=== PATIENT | female | born 1945 | race Caucasian/White ===

== ENCOUNTER → 2018-01-27 | Outpatient (CLI) | payer MEDICARE ==
[~2018-01-27] MED LIST: ASPI-555 PO; ATOR40TA71 PO; BETA1TAB18 PO; BLACK COHOSH PO; HYDR25TA PO; METOPROLOL PO; NAPR-1192 PO; OMEG-53 PO; PIOGLITAZONE PO; POTA99TA21 PO; THIA50TA PO
== END | disposition home or self-care (01) ==
LOC: RAH 10:10
PROVIDERS: ATTEND Internal Medicine Cardiovascular Disease
DX: R06.00 Dyspnea, unspecified (principal); I10 Essential (primary) hypertension
CPT/HCPCS: 71046

== ENCOUNTER 2019-08-16 06:00 | Day surgery (SDC) | payer MEDICARE ==
[2019-08-09 11:00] LABS: BASOPHILS % (AUTO) 0.4 % (0.0-5.0); EOSINOPHILS % (AUTO) 4.9 % (0.0-8.0); HEMATOCRIT 38.7 % (36-48); LYMPHOCYTES % (AUTO) 19.5 % (21.0-51.0); MEAN CORPUSCULAR HEMOGLOBIN 30.6 pg (27.0-33.0); MEAN CORPUSCULAR HGB CONC 31.5 g/dL (32.0-36.0); MONOCYTES % (AUTO) 14.7 % (3.0-13.0); NEUTROPHILS % (AUTO) 60.2 % (40.0-77.0); PLATELET COUNT (AUTO) 120 K/uL (130-400); RED BLOOD CELL COUNT(AUTO) 3.99 MIL/uL (4.00-5.50); RED CELL DISTRIBUTION WIDTH 14.8 % (11.0-15.5); WHITE BLOOD COUNT (AUTO) 6.9 K/uL (4.8-10.8)
[2019-08-09 11:16] LABS: CREATININE 0.9 mg/dL (0.5-1.5); POTASSIUM 4.4 mmol/L (3.5-5.1)
[2019-08-15 11:22] VITALS: BP 128/74
[2019-08-16] VITALS (13 sets, daily range): BP systolic 109–136; BP diastolic 50–80
[~2019-08-16] VITALS: Ht 154.9 cm; Wt 86.3 kg
[~2019-08-16 06:00] MED LIST changes: -ASPI-555 PO; +ASPI-556 PO; -BETA1TAB18 PO; -BLACK COHOSH PO; +CEFAZOLIN SODIUM 1 GM VIAL IVP SCH; +GABA600T10 PO; +GLUC-145 PO; -HYDR25TA PO; +IMIP25TA5 PO; +LISI-617 PO; -NAPR-1192 PO; +NAPR1TAB28 PO; +NAPR220C15 PO; +PANT20TA18 PO; -POTA99TA21 PO; +POTASSIUM ER PO; -THIA50TA PO
[2019-08-16] MEDS ORDERED: SODIUM CHLORIDE 0.9% 1000ML 1,000 ML IV ONE (06:06)
--- NOTE | 2019-08-16 06:50 | NUR ---
preop pt arrived in no distress. pt dressed in gown and made comfortable in stretcher. pt here for rt carpal tunnel release. pt v/s in stable condition. will continue to monitor pt.
[2019-08-16] MEDS ORDERED: LIDOCAINE HCL-MPF 0.5% 50ML VIAL IJ ONE (06:57)
[2019-08-16] MEDS ORDERED: MIDAZOLAM HCL 1 MG/ML 2ML VIAL ONE (07:03)
[2019-08-16] MEDS ORDERED: FENTANYL CITRATE PF 50 MCG/1 ML 2ML VIAL ONE (07:04)
--- NOTE | 2019-08-16 08:30 | NUR ---
OR PT TAKEN TO OR VIA STRETCHER IN NO DISTRESS
[2019-11-28] MEDS ORDERED: FURO20TA4 PO (09:37)
[2019-11-28] MEDS ORDERED: POTA-9 PO (09:37)
[2019-11-28] MEDS ORDERED: ESTR0.5T4 PO (09:38)
== END 2019-08-16 10:50 | disposition home or self-care (01) ==
LOC: DAH 06:00
PROVIDERS: ATTEND Neurological Surgery
DX: G56.03 Carpal tunnel syndrome, bilateral upper limbs (principal); I10 Essential (primary) hypertension; E11.9 Type 2 diabetes mellitus without complications; F41.9 Anxiety disorder, unspecified; E66.9 Obesity, unspecified; E78.00 Pure hypercholesterolemia, unspecified; Z11.59 Encounter for screening for other viral diseases
CPT/HCPCS: 36415; 64721; 80048; 82948 ×2; 85025; 93005; A4215 ×2; A4221; A4222; A4223 ×2; A4663; A6260; J0690; J2250; J3010; J3490; J7030; U0003; 87635

== ENCOUNTER 2019-11-29 05:56 | Day surgery (SDC) | payer OTHER ==
[2019-11-24 13:38] LABS: BASOPHILS % (AUTO) 0.4 % (0.0-5.0); EOSINOPHILS % (AUTO) 3.8 % (0.0-8.0); HEMATOCRIT 40.7 % (36-48); LYMPHOCYTES % (AUTO) 26.3 % (21.0-51.0); MEAN CORPUSCULAR HEMOGLOBIN 31.2 pg (27.0-33.0); MEAN CORPUSCULAR HGB CONC 31.2 g/dL (32.0-36.0); MONOCYTES % (AUTO) 13.4 % (3.0-13.0); PLATELET COUNT (AUTO) 126 K/uL (130-400); RED BLOOD CELL COUNT(AUTO) 4.07 MIL/uL (4.00-5.50); RED CELL DISTRIBUTION WIDTH 15.2 % (11.0-15.5); WHITE BLOOD COUNT (AUTO) 7.3 K/uL (4.8-10.8)
[2019-11-24 13:47] LABS: POTASSIUM 4.8 mmol/L (3.5-5.1)
[2019-11-28 09:12] VITALS: BP 163/81
[2019-11-29] VITALS (17 sets, daily range): BP systolic 125–158; BP diastolic 46–88
[~2019-11-29] VITALS: Ht 157.5 cm; Wt 89.4 kg
[~2019-11-29 05:56] MED LIST changes: -CEFAZOLIN SODIUM 1 GM VIAL IVP SCH; +ESTR0.5T4 PO; +FURO20TA4 PO; -GLUC-145 PO; -IMIP25TA5 PO; -NAPR1TAB28 PO; -NAPR220C15 PO; -OMEG-53 PO; -PANT20TA18 PO; +POTA-9 PO; -POTASSIUM ER PO
[2019-11-29] MEDS ORDERED: CEFAZOLIN SODIUM 1 GM VIAL ONE ×2 (06:05→06:06)
[2019-11-29] MEDS ORDERED: SODIUM CHLORIDE 0.9% 1000ML 1,000 ML IV ONE (07:22)
[2019-11-29] MEDS ORDERED: PROPOFOL 10 MG/ML 20ML VIAL IV ONE (07:23)
[2019-11-29] MEDS ORDERED: DEXAMETHASONE SOD PHOSPHATE 10MG/ML 1ML VIAL ONE (07:23)
[2019-11-29] MEDS ORDERED: LIDOCAINE PF 2% 5ML ABBOJECT ONE (07:23)
[2019-11-29] MEDS ORDERED: ONDANSETRON HCL 4 MG/2 ML VIAL ONE (07:24)
[2019-11-29] MEDS ORDERED: MIDAZOLAM HCL 1 MG/ML 2ML VIAL ONE ×2 (07:24→07:46)
[2019-11-29] MEDS ORDERED: FENTANYL CITRATE PF 50 MCG/1 ML 2ML VIAL ONE (07:24)
[2019-11-29] MEDS ORDERED: KETAMINE HCL 100 MG/ML 5ML VIAL IJ ONE (07:25)
[2019-11-29] MEDS ORDERED: LIDOCAINE HCL MDV 0.5% 50ML VIAL IJ ONE (07:25)
[2019-11-29] MEDS ORDERED: CEFAZOLIN SODIUM 1 GM VIAL IVP ONE (08:00)
--- NOTE | 2019-11-29 09:20 | NUR ---
POST OP RECEIVED PT POST. PT IN NO DISTRESS. PT HAND ELEVATED AND WITH DRESSING CLEAN AND DRY. PT ORIENTED TO ROOM AND CALL LIGHT. WILL CONTINUE TO MONITOR PT
== END 2019-11-29 10:15 | disposition home or self-care (01) ==
LOC: DAH 05:56
PROVIDERS: ATTEND Neurological Surgery
DX: G56.02 Carpal tunnel syndrome, left upper limb (principal); Z79.899 Other long term (current) drug therapy; Z20.828 Contact with and (suspected) exposure to other viral communicable diseases
CPT/HCPCS: 36415; 64721; 80051; 82948 ×2; 85025; 93005; A4213; A4215 ×2; A4216; A4221 ×2; A4222 ×2; A4223 ×5; A4606 ×2; A4663 ×2; A6260; C9803; J0690 ×2; J1100; J2001; J2250 ×2; J2405; J3490 ×2; J7030; U0003; J2704; J3010

== ENCOUNTER → 2021-06-12 | Outpatient (CLI) | payer OTHER ==
[~2021-06-12] MED LIST changes: -LISI-617 PO; +LISI5TAB21 PO; +POTA-10 PO; -POTA-9 PO
== END | disposition home or self-care (01) ==
LOC: RAH 13:52
PROVIDERS: ATTEND Physical Medicine & Rehabilitation
DX: M47.22 Other spondylosis with radiculopathy, cervical region (principal); M48.02 Spinal stenosis, cervical region; M48.54XA Collapsed vertebra, not elsewhere classified, thoracic region, initial encounter for fracture; M47.817 Spondylosis without myelopathy or radiculopathy, lumbosacral region; M48.07 Spinal stenosis, lumbosacral region; M51.26 Other intervertebral disc displacement, lumbar region; M21.371 Foot drop, right foot; Z98.890 Other specified postprocedural states; Z88.6 Allergy status to analgesic agent; Z88.2 Allergy status to sulfonamides
CPT/HCPCS: 72141; 72148

== ENCOUNTER 2021-09-03 05:58 | Observation (INO) | payer OTHER ==
[2021-09-02 09:30] VITALS: BP 134/62
[2021-09-02 10:05] LABS: BASOPHILS % (AUTO) 0.2 % (0.0-5.0); HEMATOCRIT 43.3 % (36-48); MEAN CORPUSCULAR HEMOGLOBIN 30.4 pg (27.0-33.0); MEAN CORPUSCULAR HGB CONC 31.4 g/dL (32.0-36.0); MEAN CORPUSCULAR VOLUME 96.7 fL (79-99); MONOCYTES % (AUTO) 10.5 % (3.0-13.0); NEUTROPHILS % (AUTO) 60.1 % (40.0-77.0); PLATELET COUNT (AUTO) 144 K/uL (130-400); RED BLOOD CELL COUNT(AUTO) 4.48 MIL/uL (4.00-5.50); RED CELL DISTRIBUTION WIDTH 15.1 % (11.0-15.5); WHITE BLOOD COUNT (AUTO) 9.2 K/uL (4.8-10.8)
[2021-09-02 10:17] LABS: POTASSIUM 4.6 mmol/L (3.5-5.1)
[2021-09-03] VITALS (40 sets, daily range): BP systolic 128–171; BP diastolic 43–93
[~2021-09-03] VITALS: Ht 154.9 cm; Wt 86.8 kg
[~2021-09-03 05:58] MED LIST changes: -ESTR0.5T4 PO; +GABA300C PO; -GABA600T10 PO; +IMIP50TA6 PO; +LACTATED RINGERS 1000ML 0 ML IV ONE; +PANT20TA18 PO; +SERT-439 PO
[2021-09-03] MEDS ORDERED: CEFAZOLIN SODIUM 1 GM VIAL IVP SCH (06:00)
[2021-09-03] MEDS ORDERED: 0.9%NACL 1000ML 1,000 ML IV ONE (06:04)
[2021-09-03] MEDS ORDERED: NEOSTIGMINE 5MG/5ML SYR IV ONE (06:57)
[2021-09-03] MEDS ORDERED: PROPOFOL 10 MG/ML 20ML VIAL IV ONE (06:57)
[2021-09-03] MEDS ORDERED: DEXAMETHASONE SOD PHOSPHATE 10MG/ML 1ML VIAL ONE ×2 (06:57→08:06)
[2021-09-03] MEDS ORDERED: SUCCINYLCHOLINE CHLORIDE 20 MG/ML 10 ML VIAL ONE (06:57)
[2021-09-03] MEDS ORDERED: ONDANSETRON 4MG INJ ONE (06:57)
[2021-09-03] MEDS ORDERED: GLYCOPYRROLATE 1 MG/5 ML SYRINGE ONE (06:57)
[2021-09-03] MEDS ORDERED: MIDAZOLAM HCL 1 MG/ML 2ML VIAL ONE (06:57)
[2021-09-03] MEDS ORDERED: ROCURONIUM 10MG/1ML SYR 10 MG/ML ML ONE (06:58)
[2021-09-03] MEDS ORDERED: FENTANYL CITRATE PF 50 MCG/1 ML 2ML VIAL ONE ×2 (06:58→08:56)
[2021-09-03] MEDS ORDERED: BUPIVACAINE/EPI/PF 0.25% 10ML VIAL IJ SCH (07:30)
[2021-09-03] MEDS ORDERED: CEFAZOLIN SODIUM 1 GM VIAL ONE (07:51)
[2021-09-03] MEDS ORDERED: BUPIVACAINE/PF 0.25% 30ML VIAL IJ ONE (07:53)
[2021-09-03] MEDS ORDERED: BUPIVACAINE/EPI/PF 0.25% 10ML VIAL IJ ONE (08:16)
[2021-09-03] MEDS ORDERED: LIDOCAINE HCL-MPF 1% 5ML AMP IJ ONE (08:17)
[2021-09-03] MEDS ORDERED: PHENYLEPHRINE HCL 10 MG/ML 1ML VIAL IV ONE (09:03)
[2021-09-03] MEDS ORDERED: KETOROLAC 15MG/ML VIAL (15MG/ML) ONE (11:20)
[2021-09-03] MEDS ORDERED: IPRATROPIUM 0.5 MG/2.5 ML INH IH ONE (11:50)
[2021-09-03] MEDS ORDERED: FUROSEMIDE 20MG VIAL ONE (12:39)
[2021-09-03] MEDS ORDERED: MORPHINE 2 MG SYG IVP ONE (14:30)
[2021-09-03] MEDS ORDERED: FUROSEMIDE 20 MG TABLET PO PRN (15:30)
[2021-09-03] MEDS ORDERED: KETOROLAC 15MG/ML VIAL (15MG/ML) IV PRN (15:30)
[2021-09-03] MEDS ORDERED: MORPHINE 2 MG SYG IVP PRN (17:00)
[2021-09-03] MEDS: POTASSIUM CHLORIDE 10MEQ SR TAB PO SCH (19:46)
[2021-09-03] MEDS: METOPROLOL TARTRATE 50 MG TAB PO SCH (19:46)
[2021-09-03] MEDS: GABAPENTIN 300 MG CAPSULE PO SCH (19:48)
[2021-09-03] MEDS ORDERED: AMITRIPTYLINE 25 MG TABLET PO SCH (21:00)
[2021-09-03] MEDS ORDERED: SERTRALINE HCL 50 MG TABLET PO SCH (21:00)
[2021-09-04] VITALS: BP 145/65
[2021-09-04 04:00] VITALS: BP 147/70
[2021-09-04 05:00] LABS: ALBUMIN 2.7 g/dL (3.5-5.0); BILIRUBIN,TOTAL 0.6 mg/dL (0.2-1.0); CREATININE 0.8 mg/dL (0.5-1.5); MAGNESIUM 1.6 mg/dL (1.80-2.40); POTASSIUM 4.1 mmol/L (3.5-5.1); TOTAL PROTEIN, SERUM 6.2 g/dL (6.0-8.3)
[2021-09-04 05:30] LABS: BASOPHILS % (AUTO) 0.1 % (0.0-5.0); HEMATOCRIT 38.5 % (36-48); LYMPHOCYTES % (AUTO) 12.7 % (21.0-51.0); MEAN CORPUSCULAR HEMOGLOBIN 30.5 pg (27.0-33.0); MEAN CORPUSCULAR HGB CONC 32.2 g/dL (32.0-36.0); MEAN CORPUSCULAR VOLUME 94.6 fL (79-99); MONOCYTES % (AUTO) 4.5 % (3.0-13.0); NEUTROPHILS % (AUTO) 82.3 % (40.0-77.0); PLATELET COUNT (AUTO) 143 K/uL (130-400); RED BLOOD CELL COUNT(AUTO) 4.07 MIL/uL (4.00-5.50); RED CELL DISTRIBUTION WIDTH 14.9 % (11.0-15.5); WHITE BLOOD COUNT (AUTO) 12.7 K/uL (4.8-10.8)
[2021-09-04 08:00] VITALS: BP 181/74
[2021-09-04] MEDS: GABAPENTIN 300 MG CAPSULE PO SCH (08:39)
[2021-09-04] MEDS: POTASSIUM CHLORIDE 10MEQ SR TAB PO SCH (08:40)
[2021-09-04] MEDS: METOPROLOL TARTRATE 50 MG TAB PO SCH (08:40)
[2021-09-04] MEDS ORDERED: LISINOPRIL 5 MG TABLET PO SCH (09:00)
[2021-09-04] MEDS ORDERED: ATORVASTATIN 40 MG TABLET PO SCH (09:00)
[2021-09-04] MEDS ORDERED: PANTOPRAZOLE 40 MG TAB DR PO SCH (09:00)
[2021-09-04 12:02] VITALS: BP 113/90
== END 2021-09-04 13:45 | disposition home or self-care (01) ==
LOC: DAH 05:58 → OBSVTOIN 05:59 → DAHIP 05:59 → INTOOBSV 05:59 → DAH 05:59 → 4CH 14:37
PROVIDERS: ADMIT Hospitalist; ATTEND Hospitalist
DX: J96.01 Acute respiratory failure with hypoxia (principal); Z20.822 Contact with and (suspected) exposure to COVID-19; G56.21 Lesion of ulnar nerve, right upper limb; I12.9 Hypertensive chronic kidney disease with stage 1 through stage 4 chronic kidney disease, or unspecified chronic kidney disease; N18.2 Chronic kidney disease, stage 2 (mild); E11.22 Type 2 diabetes mellitus with diabetic chronic kidney disease; J98.11 Atelectasis; E66.9 Obesity, unspecified; E78.5 Hyperlipidemia, unspecified; Z68.36 Body mass index [BMI] 36.0-36.9, adult; Z88.2 Allergy status to sulfonamides; Z90.49 Acquired absence of other specified parts of digestive tract; Z90.711 Acquired absence of uterus with remaining cervical stump; Z79.899 Other long term (current) drug therapy; Z90.710 Acquired absence of both cervix and uterus; Z79.82 Long term (current) use of aspirin; Z98.890 Other specified postprocedural states
CPT/HCPCS: 36415 ×3; 64718; 71045 ×3; 80048; 80053; 82948 ×2; 83735; 83880; 84484 ×2; 85025 ×2; 87635; 93005; 94640; 94760 ×2; 96374; A4215; A4221; A4222; A4223; A4600; A4649 ×2; A4663; A6260; C1713; C9803; G0378 ×3; J0330; J0690 ×2; J1100 ×2; J1885; J1940; J2250; J2370; J2405; J2704; J2710; J3010 ×2; J3490 ×6; J7030 ×2; J7120

== ENCOUNTER → 2021-09-26 | Outpatient (CLI) | payer OTHER ==
[~2021-09-26] MED LIST changes: -LACTATED RINGERS 1000ML 0 ML IV ONE; +LIDOCAINE HCL 4% LTA SOL 4 ML VIAL TP ONE
== END | disposition home or self-care (01) ==
LOC: WHH 09:15
PROVIDERS: ATTEND Family Medicine
DX: T81.89XD Other complications of procedures, not elsewhere classified, subsequent encounter (principal); S51.001D Unspecified open wound of right elbow, subsequent encounter; E11.42 Type 2 diabetes mellitus with diabetic polyneuropathy; E11.22 Type 2 diabetes mellitus with diabetic chronic kidney disease; I12.9 Hypertensive chronic kidney disease with stage 1 through stage 4 chronic kidney disease, or unspecified chronic kidney disease; N18.2 Chronic kidney disease, stage 2 (mild); E78.5 Hyperlipidemia, unspecified; G47.00 Insomnia, unspecified; E66.9 Obesity, unspecified; M19.90 Unspecified osteoarthritis, unspecified site; M81.0 Age-related osteoporosis without current pathological fracture; F41.9 Anxiety disorder, unspecified; Z68.35 Body mass index [BMI] 35.0-35.9, adult; Z79.899 Other long term (current) drug therapy; Z98.49 Cataract extraction status, unspecified eye; Z98.890 Other specified postprocedural states; Z79.82 Long term (current) use of aspirin; Y83.8 Other surgical procedures as the cause of abnormal reaction of the patient, or of later complication, without mention of misadventure at the time of the procedure
CPT/HCPCS: 11042

== ENCOUNTER → 2021-10-14 | Outpatient (CLI) | payer OTHER | END | disposition home or self-care (01) | LOC: WHH 09:08 | PROVIDERS: ATTEND Family Medicine | DX: T81.89XD Other complications of procedures, not elsewhere classified, subsequent encounter (principal); S51.001D Unspecified open wound of right elbow, subsequent encounter; E11.42 Type 2 diabetes mellitus with diabetic polyneuropathy; E11.22 Type 2 diabetes mellitus with diabetic chronic kidney disease; I12.9 Hypertensive chronic kidney disease with stage 1 through stage 4 chronic kidney disease, or unspecified chronic kidney disease; N18.2 Chronic kidney disease, stage 2 (mild); E78.5 Hyperlipidemia, unspecified; G47.00 Insomnia, unspecified; E66.9 Obesity, unspecified; M19.90 Unspecified osteoarthritis, unspecified site; M81.0 Age-related osteoporosis without current pathological fracture; F41.9 Anxiety disorder, unspecified; Z68.35 Body mass index [BMI] 35.0-35.9, adult; Z79.899 Other long term (current) drug therapy; Z98.49 Cataract extraction status, unspecified eye; Z98.890 Other specified postprocedural states; Z79.82 Long term (current) use of aspirin; X58.XXXD Exposure to other specified factors, subsequent encounter; Y83.8 Other surgical procedures as the cause of abnormal reaction of the patient, or of later complication, without mention of misadventure at the time of the procedure | CPT/HCPCS: 11042; 97605 ==

== ENCOUNTER → 2021-10-21 | Outpatient (CLI) | payer OTHER ==
[~2021-10-21] MED LIST changes: +HONEY 1 APPL/ML TUBE TP ONE; -POTA-10 PO; +POTA-200 PO
== END | disposition home or self-care (01) ==
LOC: WHH 10:08
PROVIDERS: ATTEND Family Medicine
DX: T81.89XD Other complications of procedures, not elsewhere classified, subsequent encounter (principal); S51.001D Unspecified open wound of right elbow, subsequent encounter; E11.42 Type 2 diabetes mellitus with diabetic polyneuropathy; E11.22 Type 2 diabetes mellitus with diabetic chronic kidney disease; I12.9 Hypertensive chronic kidney disease with stage 1 through stage 4 chronic kidney disease, or unspecified chronic kidney disease; N18.2 Chronic kidney disease, stage 2 (mild); E78.5 Hyperlipidemia, unspecified; G47.00 Insomnia, unspecified; E66.9 Obesity, unspecified; M19.90 Unspecified osteoarthritis, unspecified site; M81.0 Age-related osteoporosis without current pathological fracture; F41.9 Anxiety disorder, unspecified; Z68.35 Body mass index [BMI] 35.0-35.9, adult; Z79.899 Other long term (current) drug therapy; Z98.49 Cataract extraction status, unspecified eye; Z98.890 Other specified postprocedural states; Z79.82 Long term (current) use of aspirin; X58.XXXD Exposure to other specified factors, subsequent encounter; Y83.8 Other surgical procedures as the cause of abnormal reaction of the patient, or of later complication, without mention of misadventure at the time of the procedure
CPT/HCPCS: G0463; A4450

== ENCOUNTER → 2022-04-16 | Outpatient (CLI) | payer OTHER ==
[~2022-04-16] MED LIST changes: -HONEY 1 APPL/ML TUBE TP ONE; -LIDOCAINE HCL 4% LTA SOL 4 ML VIAL TP ONE
== END | disposition home or self-care (01) ==
LOC: RAH 09:16
PROVIDERS: ATTEND Physical Medicine & Rehabilitation
DX: M48.061 Spinal stenosis, lumbar region without neurogenic claudication (principal); M54.16 Radiculopathy, lumbar region; M54.51 Vertebrogenic low back pain
CPT/HCPCS: 72148

== ENCOUNTER → 2023-06-19 | Outpatient (CLI) | payer OTHER ==
[~2023-06-19] MED LIST changes: +ACET-66 PO; +FOLI1 PO; +GLUC-29 PO; +KRIL500C PO; +MELA5CAP PO; +NITR0.4T50 SL
[2023-06-19 12:20] LABS: BASOPHILS # (AUTO) 0.03 K/uL (0.00-0.20); BASOPHILS % (AUTO) 0.5 % (0.0-5.0); EOSINOPHILS # (AUTO) 0.29 K/uL (0.00-0.70); EOSINOPHILS % (AUTO) 4.8 % (0.0-8.0); HEMATOCRIT 36.2 % (36-48); IMMATURE GRANULOCYTE ABSOLUTE 0.02 K/uL (0-1); LYMPHOCYTES # (AUTO) 2.2 K/uL (1.0-4.8); MEAN CORPUSCULAR HEMOGLOBIN 31.1 pg (27.0-33.0); MEAN CORPUSCULAR HGB CONC 31.5 g/dL (32.0-36.0); MEAN CORPUSCULAR VOLUME 98.9 fL (79-99); MONOCYTES # (AUTO) 0.9 K/uL (0.1-1.0); MONOCYTES % (AUTO) 14.1 % (3.0-13.0); NEUTROPHILS # (AUTO) 2.6 K/uL (1.8-7.7); NEUTROPHILS % (AUTO) 43.3 % (40.0-77.0); PLATELET COUNT (AUTO) 146 K/uL (130-400); RED BLOOD CELL COUNT(AUTO) 3.66 MIL/uL (4.00-5.50); RED CELL DISTRIBUTION WIDTH 14.9 % (11.0-15.5)
[2023-06-19 12:55] LABS: ALBUMIN 3.3 g/dL (3.5-5.0); BILIRUBIN,TOTAL 0.8 mg/dL (0.2-1.0); CREATININE 1.2 mg/dL (0.5-1.0); POTASSIUM 4.8 mmol/L (3.5-5.1); TOTAL PROTEIN, SERUM 6.5 g/dL (6.0-8.3)
== END | disposition home or self-care (01) ==
LOC: LAB 10:09
PROVIDERS: ATTEND Internal Medicine Cardiovascular Disease
DX: E11.9 Type 2 diabetes mellitus without complications (principal); R06.09 Other forms of dyspnea
CPT/HCPCS: 36415; 80053; 80061; 85025